=== PATIENT | female | born 1995 | race Caucasian/White ===

== ENCOUNTER 2020-01-08 13:17 | Emergency (ER) | payer OTHER ==
[~2020-01-08] VITALS: Ht 144.8 cm; Wt 53.3 kg
[2020-01-08 13:20] VITALS: BP 134/99
[2020-01-08] MEDS ORDERED: ALBU0.63 NEB (13:50)
--- NOTE | 2020-01-08 13:55 | NUR ---
Pt here for R sided tooth pain.
== END 2020-01-08 13:57 ==
LOC: ED 13:46
DX: K08.89 Other specified disorders of teeth and supporting structures (principal); J45.909 Unspecified asthma, uncomplicated
CPT/HCPCS: 99283